=== PATIENT | female | born 1940 ===

== ENCOUNTER 2017-09-21 09:15 | Inpatient (IN) | payer OTHER ==
[~2017-09-21] VITALS: Ht 152.4 cm; Wt 68.0 kg
[2017-09-21] MEDS ORDERED: AVAPRO150 MG PO (10:15)
[2017-09-21] MEDS ORDERED: PROCARD PO (10:16)
[2017-09-21] MEDS ORDERED: EVISTA60 MG PO (10:16)
[2017-09-21] MEDS ORDERED: SYNTH PO (10:16)
[2017-09-21] MEDS ORDERED: ZANTAC300 MG PO (10:17)
[2017-09-21] MEDS ORDERED: LIPIT PO (10:17)
[2017-09-28] MEDS ORDERED: DOCUSATE SODIU100 MG PO (10:25)
[2017-09-28] MEDS ORDERED: GABAPENTIN800 MG PO (10:25)
[2017-09-28] MEDS ORDERED: AMOX-CLAV 875-1 EACH PO (10:26)
[2017-09-28] MEDS ORDERED: CLONAZEPAM1 MG PO (10:26)
[2017-09-28] MEDS ORDERED: PERCOCET 5-3251 EACH PO (10:26)
== END 2017-09-28 14:29 | disposition home or self-care (01) | DRG 454 ==
LOC: PED 09-27 04:50 → O/R 09-27 04:50 → SURG 09-27 09:15 → PED 09-27 15:37
PROVIDERS: Orthopaedic Surgery Orthopaedic Surgery of the Spine
PROC: 0SG0071 Fusion of Lumbar Vertebral Joint with Autologous Tissue Substitute, Posterior Approach, Posterior Column, Open Approach (ICD-10-PCS; 2017-09-27)
PROC: 0ST20ZZ Resection of Lumbar Vertebral Disc, Open Approach (ICD-10-PCS; 2017-09-27)
PROC: 0SG00AJ Fusion of Lumbar Vertebral Joint with Interbody Fusion Device, Posterior Approach, Anterior Column, Open Approach (ICD-10-PCS; 2017-09-27)
PROC: 07DS3ZZ Extraction of Vertebral Bone Marrow, Percutaneous Approach (ICD-10-PCS; 2017-09-27)
PROC: 0SG00A0 Fusion of Lumbar Vertebral Joint with Interbody Fusion Device, Anterior Approach, Anterior Column, Open Approach (ICD-10-PCS; principal; 2017-09-27 13:30)
DX: M48.061 Spinal stenosis, lumbar region without neurogenic claudication (principal); M51.06 Intervertebral disc disorders with myelopathy, lumbar region; M43.16 Spondylolisthesis, lumbar region; I10 Essential (primary) hypertension; E03.8 Other specified hypothyroidism